=== PATIENT | male | born 1945 | race Caucasian/White ===

== ENCOUNTER → 2017-12-28 | Outpatient (CLI) | payer OTHER, MEDICARE | LOC: BMCIMAGING 15:11 | PROVIDERS: ATTEND Internal Medicine Rheumatology | DX: S22.060A Wedge compression fracture of T7-T8 vertebra, initial encounter for closed fracture (principal); M48.14 Ankylosing hyperostosis [Forestier], thoracic region; M51.34 Other intervertebral disc degeneration, thoracic region; M51.36 Other intervertebral disc degeneration, lumbar region; M50.30 Other cervical disc degeneration, unspecified cervical region ==